=== PATIENT | male | born 1965 | race Caucasian/White ===

== ENCOUNTER 2017-01-08 15:20 | Outpatient (CLI) | payer BC ==
--- NOTE | 2017-01-08 16:25 | DIAGNOSTIC IMAGING REPORT ---
PROCEDURE: XR HAND 3 OR 4 VIEWS - LEFT INDICATION: 3RD FINGER SWELLING/PX OVER KNUCKLE TECHNIQUE: Four views. COMPARISON: None. FINDINGS: There is no fracture or dislocation. 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 IMPRESSION: 1. No fracture or dislocation.
== END 2017-01-08 23:00 ==
LOC: XR SRH 15:20
DX: M79.645 Pain in left finger(s) (principal); M79.89 Other specified soft tissue disorders